=== PATIENT | male | born 1990 | race Caucasian/White ===

== ENCOUNTER 2022-01-14 03:20 | Emergency (ER) | payer OTHER, SELFPAY ==
--- NOTE | ~2022-01-14 | XR_ITS ---
XR wrist LT min 3V DATE: 01/14/2022 04:14 INDICATION: Lateral wrist pain after injury TECHNIQUE: 4 views COMPARISON: None FINDINGS: No fracture or dislocation is detected. Joint spaces are preserved. No erosive change or ch ondrocalcinosis. IMPRESSION: No fracture or dislocation Reviewed, dictated and finalized at location A. IMPRESSION: No fracture or dislocation
--- NOTE | ~2022-01-14 | XR_ITS ---
XR elbow LT min 3V DATE: 01/14/2022 04:14 INDICATION: Injury. Posterior pain. TECHNIQUE: 4 views COMPARISON: None FINDINGS: No fracture or dislocation or joint effusion. No periosteal reaction or bone destruction. IMPRESSION: Negative Reviewed, dictated and finalized at location A. IMPRESSION: Negative
[2022-01-14 03:21] VITALS: BP 151/104; PULSE 96; RESP 16; TEMP 36.6; O2SAT 96
[2022-01-14] MEDS: IBUPROFEN 400 MG TABLET 800 MG PO (04:02)
--- NOTE | 2022-01-14 04:16 | ED.UPPEXIN ---
HPI - Extremity Injury (Upper) General Chief Complaint: Extremity Injury, Upper Stated Complaint: PAIN Time Seen by Provider: 01/14/22 03:24 Source: patient and RN notes reviewed Mode of arrival: ambulatory Limitations: no limitations History of Present Illness HPI narrative: hit left elbow and wrist MD complaint: injury to: left, elbow and wrist Onset (ago): hour(s) (1) Other injuries: none Place: work Severity: moderate Severity scale (1-10): 4 Relieving factors: immobilization and rest Exacerbating factors: movement of extremity Context: fall Associated symptoms: denies other symptoms Related Data Allergies Allergy/AdvReac Type Severity Reaction Status Date / Time No Known Allergies Allergy Verified 01/14/22 03:25 Review of Systems Review of Systems: All systems reviewed & are unremarkable except as noted in HPI and below PMFSH Past Medical History Medical History (Updated 01/14/22 @ 04:55 by Jerzy Nguyen MD) Elbow contusion Sprain and strain of wrist Exam Const: General: no acute distress Nutritional Appearance: well nourished Orientation/consciousness: patient oriented x3 Limitations: no limitations HENMT: Head: normal to inspection Ears: external ears normal, TM's normal bilaterally and EAC's normal General nose exam: Normal external nose present and Normal nares present Face and sinus: normal facial exam and sinuses nontender Mouth: Yes Normal oral and palatal mucosa present, Yes lip normal and Yes moist mucous membranes Teeth and gingiva: dentition normal Throat: posterior oropharynx normal Eyes: Conjunctivae: conjunctivae normal Pupils: Equal, round and reactive pupils present EOM: EOMs intact bilaterally Neck: Neck: normal visual inspection and no lymphadenopathy Chest: Chest palpation & inspection: normal inspection of the chest Resp: Effort & Inspection: normal respiratory effort Auscultation: clear to auscultation bilaterally Cardio: Rate: regular rate Rhythm: regular rhythm GI: GI Palp: Yes Soft to palpation and No Tenderness to palpation present (GI) Auscultation: normal bowel sounds : General: Yes bladder normal to palpation and Yes no CVA tenderness Skin: General skin exam: normal color Rashes: no rashes Neuro: General: patient oriented x3, moves all extremities, no meningeal signs, no focal motor deficits and CN's II-XI intact bilaterally Speech: normal speech Gait exam (Neuro): Normal gait present Extrem: Other: abrasion left elbow, minimally tender with no acute swelling or deformity. left wrist minimal ulnar tenderness with full ROM and no acute swelling or deformity. Psych: Mental Status: mental status grossly normal Affect: normal affect Attitude: cooperative Course Course Emergency Course: Pt was stable in the ED, less pain Reevaluation(s) Reevaluation #1: Review VS. Date: 01/14/22 Time: 04:15 Vital Signs Vital signs: Vital Signs Temperature 36.6 C 01/14/22 03:21 Pulse Rate 96 01/14/22 03:21 Respiratory Rate 16 01/14/22 03:21 Blood Pressure 151/104 H 01/14/22 03:21 Pulse Oximetry 96 01/14/22 03:21 Oxygen Delivery Room Air 01/14/22 03:21 Temperature 36.6 C 01/14/22 03:21 Pulse Rate 96 01/14/22 03:21 Respiratory Rate 16 01/14/22 03:21 Blood Pressure 151/104 H 01/14/22 03:21 Pulse Oximetry 96 01/14/22 03:21 Oxygen Delivery Room Air 01/14/22 03:21 MDM - Extremity Injury (Upper) Differential Diagnosis Differential diagnosis: Likely sprain and strain of wrist, fracture of wrist and other (left elbow contusion) Medical Records Attestation: I reviewed the patient's medical records. Imaging Data My impression: no acute Fx or dislocation left wrist or left elbow Critical Care Time Critical Care Time Critical Care Time: No Total Critical Care Time: 0 Discharge Plan Discharge Clinical Impression: Sprain and strain of wrist, Elbow contusion Patient Disposition: Home, Self-Care Cond
== END 2022-01-14 04:25 | disposition home or self-care (01) ==
PROVIDERS: Emergency Provider Emergency Medicine
DX: S63.502A Unspecified sprain of left wrist, initial encounter (principal); S50.02XA Contusion of left elbow, initial encounter
CPT/HCPCS: 73080; 73110; 99283; A4565; A9270